=== PATIENT | male | born 1960 | race Caucasian/White ===

== ENCOUNTER 2017-01-02 | Emergency (ER) | payer OTHER ==
[~2017-01-02] VITALS: Ht 167.6 cm; Wt 84.5 kg
[~2017-01-02] MED LIST: BENA20TA48 PO; NAPR-260 PO
[2017-01-02 00:19] VITALS: Ht 167.6 cm; Wt 84.5 kg
--- NOTE | 2017-01-02 01:23 | ERD ---
ER Documentation Chief Complaint Date/Time DATE: 01/02/17 TIME: 01:19 Chief Complaint TESTICLE MODERATE BLEEDING AFTER INTERCOURSE, BURNING SENSATION HPI This patient is a 56-year-old male presenting to the emergency department with bleeding from his left testicle which occurred just prior to arrival while he was having rough sexual intercourse with his . His past medical history of sexually transmitted infections. There is no specific traumatic event, however they finish intercourse and then noticed a moderate amount of blood on the sheets indeterminate was from the left testicle. The patient was able to stop the bleeding. No other symptoms or injuries to report. ROS All systems reviewed and are negative except as per history of present illness. Medications Home Meds Reported Medications Naproxen* (Naprosyn*) 500 Mg Tablet, 500 MG PO BID Y for PAIN, TAB 05/05/15 Benazepril Hcl* (Benazepril Hcl*) 20 Mg Tablet, 20 MG PO DAILY, TAB 02/27/14 Allergies Allergies: Coded Allergies: guaifenesin (Unverified Allergy, Unknown, SOB, 02/27/14) PMhx/Soc History of Surgery: No Anesthesia Reaction: No Hx Neurological Disorder: No Hx Respiratory Disorders: No Hx Cardiac Disorders: Yes (HTN ) Hx Psychiatric Problems: No Hx Miscellaneous Medical Probl: No Hx Alcohol Use: Yes (OCCASIONAL) Hx Substance Use: No Hx Tobacco Use: No Smoking Status: Never smoker Physical Exam Vitals Vital Signs Date Time Temp Pulse Resp B/P Pulse Ox O2 Delivery O2 Flow Rate FiO2 01/02/17 00:19 98.5 83 17 142/93 97 Physical Exam Const: Nontoxic, well-appearing male in no acute distress. Head: Atraumatic Eyes: Normal Conjunctiva ENT: Normal External Ears, Nose and Mouth. Neck: Full range of motion..~ No meningismus. Exam: Scrotum: There is a very superficial abrasion noted to the left scrotum with no active bleeding currently. There appears to be a small clot in place which stopped the bleeding. Testes/Epid: Non-tender w/ normal lie Discharge: None Skin: No petechiae or rashes Back: No midline or flank tenderness Ext: No cyanosis, or edema Neur: Awake and alert Psych: Normal Mood and Affect Procedures/MDM 56-year-old male presents to the emergency department with complaints of bleeding from his left testicle after rough intercourse. On physical examination there is a very superficial abrasion noted to the left testicle. I do not believe the patient requires further workup or treatment in the department. He was advised to abstain from sexual intercourse for at least 5 days until the wound heals. He was advised to follow-up with his primary care physician and he may return to the emergency department for any worsening or continuing symptoms. Departure Diagnosis: Primary Impression: Superficial injury of scrotum without infection Encounter type: initial encounter Qualified Code: S30.94XA - Superficial injury of scrotum without infection, initial encounter Condition: Fair Patient Instructions: Contusion, Testicles Or Scrotum Referrals: [facility] YOU HAVE RECEIVED A MEDICAL SCREENING EXAM AND THE RESULTS INDICATE THAT YOU DO NOT HAVE A CONDITION THAT REQUIRES URGENT TREATMENT IN THE EMERGENCY DEPARTMENT. FURTHER EVALUATION AND TREATMENT OF YOUR CONDITION CAN WAIT UNTIL YOU ARE SEEN IN YOUR DOCTORS OFFICE WITHIN THE NEXT 1-2 DAYS. IT IS YOUR RESPONSIBILITY TO MAKE AN APPOINTMENT FOR FOLOW-UP CARE. IF YOU HAVE A PRIMARY DOCTOR --you should call your primary doctor and schedule an appointment IF YOU DO NOT HAVE A PRIMARY DOCTOR YOU CAN CALL OUR PHYSICIAN REFERRAL HOTLINE AT IF YOU CAN NOT AFFORD TO SEE A PHYSICIAN YOU CAN CHOSE FROM THE FOLLOWING [facility] [address] [facility]. [facility] [address] [facility]. [facility] [address] [facility] [facility] [address] [facility]. [facility] [address] [facility]. [facility]. [address] Additional Instructions: Follow up with your PCP within the next 1-3 days for a repeat evaluation. If you require a referral to a specialist, your Primary Care Provider may be able to provide this for you. In most patient cases, a referral is not required. If you have further questions regarding this matter, please ask your Primary Care Provider. Return the the emergency department immediately if symptoms worsen or change. If you have any questions regarding medications, ask your pharmacist or us before you leave. If any adverse reactions, occur while taking your medications, discontinue the treatment and return to the emergency department immediately. If any new or worsening symptoms, uncontrolled fevers, or other unexplained symptoms occur, return to the emergency department immediately. Take your medications as directed, and complete the entire course of treatment. STEFAN ACEVES PA-C Jan 02, 2017 01:22
== END 2017-01-02 01:39 | disposition home or self-care (01) ==
LOC: FTE
DX: S30.94XA Unspecified superficial injury of scrotum and testes, initial encounter (principal); I10 Essential (primary) hypertension; X58.XXXA Exposure to other specified factors, initial encounter; Y92.9 Unspecified place or not applicable
CPT/HCPCS: 99282